=== PATIENT | male | born 1995 | race Caucasian/White ===

== ENCOUNTER 2022-08-29 02:20 | Day surgery (SDC) | payer BC, SELFPAY ==
[2022-08-12 11:17] VITALS: BMI 30.2
[2022-08-29 10:22] VITALS: BP 148/87; PULSE 79; RESP 18; TEMP 36.6; O2SAT 99; BMI 32.3
[2022-08-29] MEDS: LACTATED RINGERS 1,000 ML 150 ML IV CONT (10:30)
--- NOTE | 2022-08-29 10:39 | P.PNAN_ITS ---
Anes - Initial Pre Proc Eval Procedure: Operation Date: 08/29/22 11:30 Proposed Procedures p Esophagogastroduodenoscopy - Morales Myles MD Date/Time: 08/29/22 10:39 Surgeon: Morales Myles MD Pre Op Diagnosis: GERD Patient Data Age: 27 Gender: M Height: 1.85 m Weight: 111.1 kg Last Vital Signs Temp 98 F 08/29/22 10:22 Pulse 79 08/29/22 10:22 Resp 18 08/29/22 10:22 BP 148/87 H 08/29/22 10:22 Pulse Ox 99 08/29/22 10:22 O2 Del Method Room Air 08/29/22 10:22 Allergies Allergy/AdvReac Type Severity Reaction Status Date / Time cephalexin Allergy Intermediate Hives Verified 08/29/22 10:21 Penicillins Allergy Intermediate Hives Verified 08/29/22 10:21 Home Medications Medication Instructions Recorded Confirmed Type cetirizine 10 mg tablet 10 mg PO BID 08/12/22 08/12/22 History esomeprazole magnesium 20 mg 20 mg PO DAILY 08/12/22 08/12/22 History capsule,delayed release (Nexium 24HR) sildenafil 100 mg tablet 100 mg PO PRN PRN Sexual Activity 08/12/22 08/12/22 History Patient hx anesthesia problems: none Family hx anesthesia problems: none Results Review: All pre-operative results and documents have been reviewed as part of the pre- operative evaluation. PMFSH Social History Social History Smoking packs per day: 1 Smoking cigarettes per day: 20.0 Years smoked: 10 Smoking pack-years: 10.00 Smoking status: Former smoker Tobacco type: cigarettes Alcohol intake: current Drinks per week: 1 Alcohol use details: MIXED Substance use: never Substance use type: does not use Living arrangements: with family Spiritual care concerns: No Anes - Eval Final PreProcedure Day of Procedure 08/29/22 10:39 Patient weight: obese Heart: regular rate and rhythm Lungs: clear to auscultation Airway: Mallampati scale class II Neurological: alert and oriented Last oral intake: >/= 8 hours ASA classification: II Emergent: no Anesthetic plan: proceed Anesthesia type and monitoring: general GIVS and standard monitoring Results Review: All pre-operative results and documents have been reviewed as part of the pre- operative evaluation. Informed Consent: The patient's anesthetic plan and its attendant risks and benefits were discussed with the patient/family/POA. Questions were solicited and answers provided to the satisfaction of the patient/family/POA.
--- NOTE | 2022-08-29 10:48 | PM.HPGS ---
History of Present Illness History of Present Illness Consent: Risks, benefits, and alternatives have been discussed and questions answered. Patient agrees to proceed with procedure. Chief complaint: GERD Narrative: Jd Lozoya is a 27 year old male with gerd for years controlled with nexium but if skips dose then will get symptomatic, never had egd Review of Systems Constitutional: Constitutional: Denies headache(s) and Denies weakness Eyes: Eyes: Denies blurry vision ENT: Reports Normal hearing present, Denies headache(s) and Denies neck pain Cardiovascular: Cardiovascular: Denies chest pain and Denies dyspnea Respiratory: Respiratory: Denies dyspnea Gastrointestinal: Gastrointestinal: Reports no additional gastrointestinal complaints Genitourinary: Genitourinary: Denies dysuria Musculoskeletal: Musculoskeletal: Denies neck pain Integumentary/Breasts: Skin/Breast: Denies dry skin Neurologic: Reports Normal hearing present, Denies headache(s) and Denies weakness Psychiatric: Psychiatric: Denies anxiety Endocrine: Endocrine: Denies change in body appearance Hematologic/Lymphatic: Hematologic/Lymphatic: Denies easy bleeding Allergic/Immunologic: Allergic/Immunologic: Denies urticaria PMFSH Past Medical History Medical History (Updated 08/29/22 @ 10:48 by Morales Myles MD) GERD (gastroesophageal reflux disease) Social History Social History Smoking packs per day: 1 Smoking cigarettes per day: 20.0 Years smoked: 10 Smoking pack-years: 10.00 Smoking status: Former smoker Tobacco type: cigarettes Alcohol intake: current Drinks per week: 1 Alcohol use details: MIXED Substance use: never Substance use type: does not use Living arrangements: with family Spiritual care concerns: No Meds Home Medications and Allergies Home Medications Medication Instructions Recorded Confirmed Type cetirizine 10 mg tablet 10 mg PO BID 08/12/22 08/12/22 History esomeprazole magnesium 20 mg 20 mg PO DAILY 08/12/22 08/12/22 History capsule,delayed release (Nexium 24HR) sildenafil 100 mg tablet 100 mg PO PRN PRN Sexual Activity 08/12/22 08/12/22 History Allergies Allergy/AdvReac Type Severity Reaction Status Date / Time cephalexin Allergy Intermediate Hives Verified 08/29/22 10:21 Penicillins Allergy Intermediate Hives Verified 08/29/22 10:21 Vital Signs Vital Signs - 24 hr 08/29/22 10:22 Temperature 98 F Pulse Rate 79 Respiratory Rate 18 Blood Pressure 148/87 H Pulse Oximetry 99 Oxygen Delivery Room Air Exam Const: General: comfortable and no acute distress HENMT: Face/Nose/Sinus: Normal nares present Eyes: General: appearance normal, both eyes and all related structures Neck: Neck: no JVD Resp: Auscultation: clear to auscultation bilaterally Cardio: Rate: regular rate Rhythm: regular rhythm GI: Inspection: non-distended GI Palp: Yes Soft to palpation Skin: General skin exam: normal color Neuro: General: gait normal Speech: normal speech Extrem: General: normal to inspection Psych: Mental Status: mental status grossly normal Assessment and Plan Assessment and plan (1) GERD (gastroesophageal reflux disease): Code(s): K21.9 - Gastro-esophageal reflux disease without esophagitis Status: Acute Assessment and Plan: egd with bx on ppi
[2022-08-29 11:08] VITALS: BP 137/79; PULSE 73; RESP 22; O2SAT 96
[2022-08-29 11:18] VITALS: BP 134/90; PULSE 69; RESP 15; O2SAT 98
[2022-08-29 11:28] VITALS: BP 147/90; PULSE 72; RESP 16; O2SAT 98
== END 2022-08-29 11:38 | disposition home or self-care (01) ==
PROVIDERS: PCP Emergency Medicine; Visit Provider Internal Medicine Gastroenterology
PROC: 0DJ08ZZ Inspection of Upper Intestinal Tract, Via Natural or Artificial Opening Endoscopic (ICD-10-PCS; CPT 43235; principal; 2022-08-29 11:30)
DX: K21.00 Gastro-esophageal reflux disease with esophagitis, without bleeding (principal); K44.9 Diaphragmatic hernia without obstruction or gangrene; Z87.891 Personal history of nicotine dependence; E66.9 Obesity, unspecified; Z68.32 Body mass index [BMI] 32.0-32.9, adult
CPT/HCPCS: 43239; 88305; J2704; J7120